=== PATIENT | female | born 1995 | race Caucasian/White ===

== ENCOUNTER 2024-12-20 08:01 | Emergency (ER) | payer OTHER ==
[2024-12-20 08:58] LABS: ALT (SGPT) 36 U/L (Less than 34); AST (SGOT) 30 U/L (11-34); Albumin 4.1 g/dL (3.1-4.5); Alkaline Phosphatase 80 U/L (40-110); Anion Gap 19 mmol/L (10-20); BUN (Urea Nitrogen) 12 mg/dL (7.0-18.7); Bilirubin, Total 0.2 mg/dL (0.3-1.2); Calc. Creatinine Clearance 0 mL/min (70-130); Calcium 9.0 mg/dL (7.8-10.44); Carbon Dioxide 17 mmol/L (22-29); Chloride 106 mmol/L (98-107); Globulin 4.2 g/dL (2.4-3.5); Glucose 91 mg/dL (70-105); Magnesium 1.7 mg/dL (1.6-2.6); Potassium 3.5 mmol/L (3.5-5.1); Sodium 138 mmol/L (136-145)
[2024-12-20 09:00] LABS: Hematocrit 38.8 % (34.9-44.5); Hemoglobin 12.3 g/dL (12.0-15.5); Mean Corpuscular Hemoglobin 25.9 pg (27.0-33.0); Mean Corpuscular Volume 81.7 fL (81.6-98.3); Platelet Count 313 10x3/uL (150-450); Red Blood Cell (RBC) Count 4.75 10x6/uL (3.90-5.03); White Blood Cell (WBC) Count 5.68 10x3/uL (3.5-10.5)
[2024-12-20 09:02] LABS: Troponin I Less than 0.010 ng/mL (< 0.028)
[2024-12-20 09:08] LABS: BHCG - Serum Negative (NEGATIVE); Pregs Control Background? CLEAR/WHITE (CLR/WHITE); Pregs Control Bar Appear? YES (CONTROL BAR)
[2024-12-20] MEDS ORDERED: Oseltamivir 75 MG CAP ONE (09:35)
[2024-12-20] MEDS ORDERED: Ibuprofen 200 MG TAB ONE (09:36)
[2024-12-20 10:09] LABS: Ovalocytes SLIGHT = 2-5 cells (100X) (0-1/hpf)
[2024-12-20 10:10] LABS: Platelet Adequacy Comment Appears Adequate
[2024-12-20 10:11] LABS: MDiff Complete? YES
== END 2024-12-20 10:20 | disposition home or self-care (01) ==
LOC: CSHERS 08:01
DX: J11.1 Influenza due to unidentified influenza virus with other respiratory manifestations (principal); F41.9 Anxiety disorder, unspecified; R06.4 Hyperventilation
CPT/HCPCS: 71045; 80053; 83605; 83735; 83880; 84484; 84703; 85025; 87428; 93005; 94760